=== PATIENT | female | born 1980 | race Caucasian/White ===

== ENCOUNTER 2017-09-30 15:55 | Emergency (ER) | payer MEDICAID ==
[~2017-09-30] VITALS: Ht 160 cm; Wt 60.0 kg
[2017-09-30] MEDS ORDERED: KEPP500 PO (15:59)
[2017-09-30] MEDS ORDERED: LEVETIRACETAM 500MG PREMIX 100 ML IV ONE (17:00)
[2017-09-30 17:58] LABS: CHLORIDE 107 mEq/L (98-107)
[2017-09-30 18:01] LABS: BASOPHILS % 1.4 % (0.0-2.0); EOSINOPHILS % 0.5 % (0.0-5.0); HEMOGLOBIN. 7.4 g/dL (12.0-16.0); LYMPHOCYTES % 27.7 % (20.0-50.0); MEAN CORPUSCULAR HEMOGLOBIN 19.3 pg (28.0-32.0); MEAN CORPUSCULAR VOLUME 62.4 fL (81.0-99.0); MEAN PLATELET VOLUME 7.8 fl (7.4-10.4); MONOCYTES % 8.5 % (2.0-8.0); NEUTROPHILS % 61.9 % (40.0-76.0); PLATELET 367 x1000/uL (130-400); RED BLOOD CELL COUNT 3.85 mill/uL (4.2-5.4); RED CELL DISTRIBUTION WIDTH 18.7 % (11.6-14.6)
[2017-09-30 18:02] LABS: ETHANOL BLOOD < 10 mg/dL
[2017-09-30 21:34] VITALS: BP 135/79
== END 2017-09-30 22:06 | disposition home or self-care (01) ==
LOC: ER 16:57
DX: R56.9 Unspecified convulsions (principal); N93.9 Abnormal uterine and vaginal bleeding, unspecified; D50.8 Other iron deficiency anemias
CPT/HCPCS: 36415; 76830; 76856; 80053; 85025; 96365; 99285; G0482; J1953